=== PATIENT | male | born 1960 | race Caucasian/White ===

== ENCOUNTER → 2023-04-24 06:42 | Day surgery (SDC) | payer BC, SELFPAY | LOC: GI 06:42 | PROVIDERS: ATTENDING PHYSICIAN Internal Medicine Gastroenterology | DX: Z12.11 Encounter for screening for malignant neoplasm of colon (principal); Z86.010 Personal history of colon polyps; K57.30 Diverticulosis of large intestine without perforation or abscess without bleeding; K64.8 Other hemorrhoids; D12.3 Benign neoplasm of transverse colon | CPT/HCPCS: 45385; 88305 ==

== ENCOUNTER 2023-11-23 17:44 | Inpatient (IN) | payer OTHER, SELFPAY ==
[2023-11-23] VITALS (9 sets, daily range): BP systolic 118–171; BP diastolic 63–88; PULSE 49; O2SAT 96; BMI 27.1; BMI 26.7
--- NOTE | 2023-11-23 11:01 | ED.GENMED ---
History of Present Illness
General
Chief Complaint: Dizziness
Source: patient
Exam Limitations: none
Time Seen by Provider: 11/23/23 10:29
Nursing documentation reviewed up to this point in time: agreed with
History of Present Illness
History of Present Illness:
Patient is a 63-year-old male who presents to the ER for evaluation. Patient reports yesterday he had a brief episode of room spinning sensation when he rolled over to get up in the morning out of bed. This morning around 6:50 AM he had similar
episodes where he rolled over to the right of the room started to spin however it did not resolve. He called his family doctor was seen by his family doctor however while at the office his heart rate was found to be low in the low 40s. Reports his
heart rate is normally in the 50s.
Currently he denies a sensation of the room is spinning however he reports it would lie him down he will feel more symptoms. He was nauseous and did vomit.
He is not on blood thinners. Denies any headache. Denies any recent trauma. Denies any associated upper or lower extremity numbness tingling weakness.
Review of Systems
Review of Systems
Allergies reviewed?: Yes
All Other Systems: ROS reviewed and negative except as documented in HPI and ROS
Constitutional: Reports no symptoms; Denies fever, fatigue or chills
EENT: Reports no symptoms
Respiratory: Reports no symptoms
Cardiac: Reports no symptoms
ABD/GI: Reports nausea and vomiting
Musculoskeletal: Reports no symptoms
Skin: Reports no symptoms
Neurological: Reports other (vertigo room spinning sensation)
Psychiatric: Reports no symptoms
Phy Exam
General Physical Exam
General Presentation: no apparent distress
General age: appears stated age
General Skin: warm and dry
General Habitus: normal
General Mental: alert
General Hydration: appears well hydrated
Eye Exam
Eye Exam: PERRL, EOMI and other (Prone horizontal nystagmus)
Eye Exam General: PERRL: bilateral and EOM intact: bilateral
Pupil Exam: Bilateral: round and reactive
Cardiovascular Exam
Cardiovascular Exam: bradycardia
Pulmonary Exam
Pulmonary Exam: lungs clear and no respiratory distress
Neurological Exam
Neurological Exam: alert, oriented x3, no motor deficits and no sensory deficits
Cerebellar
Cerebellar Function: normal finger to nose
Musculoskeletal Exam
Musculoskeletal Exam: full ROM
Skin Exam
Skin Exam: normal color and warm/dry
Course
Orders/Labs/Results
Orders:
Orders
11/23/23 10:09
Electrocardiogram (*1) Urgent
Reason for Study: Chest Pain
EKG- Treatment ONCE
11/23/23 10:58
Complete Blood Count/With Diff Urgent
Comprehensive Metabolic Panel Urgent
TSH Reflex To Free T4 Urgent
11/23/23 11:02
0.9% Sodium Chloride 1000 ml [Nss] 1,000 ml IV BOLUS
Ondansetron Injectable [Zofran] 4 mg .ROUTE .STK-MED ONE
Ondansetron Injectable [Zofran] 4 mg IV NOW STA
11/23/23 11:09
CT Head W/o Iv Contrast Urgent
Comment:
Reason For Exam: vertigo
11/23/23 11:10
Physical Therapy Consult [Pt Eval And Treat] Urgent
Treatment: vertigo eval
Activity Level: Ambulate
11/23/23 13:40
Nitroglycerin 100 mg/250 ml [Nitroglycerin Premix] 100 mg in 250 ml IV NOW
Initial dose in mcg/min, then titrate:: 5
Titrate to keep:: SBP < 160 mmHg
Titrate by mcg/min:: 5 mcg/min, may increase by 10 mcg/min if dose > 20 mcg/min
Frequency of titrations (minutes):: every 3-5 minutes
Maximum dose in mcg/min:: 200
Begin to taper infusion when:: Remained at goal for 2hrs
Taper by mcg/min:: 5 mcg/min
Frequency of taper (minutes) if patient maintains goal:: 30
Taper to off?: Yes
If infusion off & no longer maintaining goal:: Contact Provider
11/23/23 14:46
Ondansetron Injectable [Zofran] 4 mg IV NOW STA
diazePAM [Valium Injection] 2 mg IV NOW STA
Abnormal Lab Results
11/23/23
10:58
RBC 4.58 L 10^6/uL
(4.70-6.10)
MCH 31.2 H pg
(27.0-31.0)
Absolute Lymphs (auto) 0.9 L 10^3/uL
(1.2-3.4)
Neutrophils % 77.3 H %
(42.2-75.2)
Lymphocytes % 14.2 L %
(20.5-51.1)
BUN 24 H mg/dl
(9-20)
Glucose 108 H mg/dl
(70-99)
11/23/23 10:58
11/23/23 10:58
Vital Signs
Initial and Last Documented VS:
Initial Vital Signs
Temp Pulse Resp BP Pulse Ox
98.2 F 45 16 171/85 100
11/23/23 10:22 11/23/23 10:22 11/23/23 10:22 11/23/23 10:22 11/23/23 10:22
Last Documented Vital Signs
Temp Pulse Resp BP Pulse Ox
98.2 F 48 14 166/88 96
11/23/23 10:22 11/23/23 14:45 11/23/23 14:45 11/23/23 13:51 11/23/23 13:51
MDM/Problems Addressed
Differential Diagnosis Includes:
Not limited to peripheral vertigo bradycardia dehydration less likely stroke
MDM/Problems Addressed:
Patient is a 63-year-old male who presented for positional vertigo. Episode started yesterday but was brief but continued today. Patient did see family doctor follow-up the office his heart rate is very low he normally has a low heart rate however
heart rate was as low as 38 here in the ER. Patient has a significant case of peripheral vertigo with obvious nystagmus evaluated by physical therapy who does agree that this is peripheral vertigo. Patient not tolerating procedures well very
vertiginous and vomiting with it. Head CT negative. Physical therapy will attempt additional treatment however will likely need Valium Zofran fluids. Patient's labs unremarkable with low heart rate and continued intractable vertigo will admit
*Critical Care Note
Total Time (30-74mins, 75-104mins- exclusive of procedures): Not Applicable
ED Attending Note
-
Portions of this chart may have been created with voice recognition software.� Occasional wrong word or��sound alike� substitutions may have occurred due to the inherent limitations of voice recognition software.
Discharge Plan
Departure
Patient Disposition: Admit
Date of Disposition: 11/23/23
Time of Disposition: 15:13
Admit to: Telemetry
Admit to doctor: hospitalist
Presentation/result/management discussed w/ accepting MD/DO: Hospitalist
Patient with high blood pressure during this ER visit?: Yes
Condition: Fair
Covid-19: Not Applicable
Discharge Problem:
Vertigo, Bradycardia
Prescriptions:
No Action
sulfamethoxazole-trimethoprim [Bactrim DS] 800-160 mg tablet
1 tab PO DAILY Qty: 14 0RF
docusate sodium [Colace] 100 mg capsule
100 mg PO BID Qty: 60 0RF
Rx Instructions:
get over the counter
naproxen [Naprosyn] 500 mg tablet
500 mg PO BID Qty: 60 0RF
tramadol 50 mg tablet
50 mg PO Q8H PRN (Reason: pain) Qty: 30 0RF
Referrals:
Will Ching CRNP [Family Provider] -
Interventions
Interventions:
*Risk Screen - Suicide Last Done: 11/23/23 10:22
*Neglect/Abuse Screening Last Done: 11/23/23 10:22
*ED COVID-19 Vaccine History Last Done: 11/23/23 10:22
ED- Neurological Assessment Last Done: 11/23/23 10:56
ED Swallowing Screen Last Done: 11/23/23 10:56
Discharge Date and Time
Print Language: CZECH
[2023-11-23] MEDS: ZOFRAN 4 MG IV ×2 (11:04→14:55)
[2023-11-23] MEDS: NSS 1000 IV ×2 (11:05→18:28)
[2023-11-23 11:13] LABS: % Basophils 0.8 % (0-2); % Eosinophils 0.5 % (0-6); % Immature Granulocytes 0.3 % (0-0.5); % Lymphocytes 14.2 % (20.5-51.1); % Monocytes 6.9 % (1.7-9.3); % Neutrophils 77.3 % (42.2-75.2); Absolute Basophils 0.1 10^3/uL (0-0.2); Absolute Lymphocytes 0.9 10^3/uL (1.2-3.4); Absolute Monocytes 0.4 10^3/uL (0.1-0.6); Hemoglobin 14.3 g/dL (13.0-18.0); Mean Corp Hgb Conc. 36.7 g/dL (33.0-37.0); Mean Corpuscular Hgb 31.2 pg (27.0-31.0); Mean Corpuscular Volume 85.2 fL (80.0-94.0); Mean Platelet Volume 9.6 fL (7.4-10.4); Nucleated Red Blood Cells % 0 % (-); Platelet Count 202 10^3/uL (130-400); Red Blood Cell Count 4.58 10^6/uL (4.70-6.10); Red Cell Dist. Width 11.7 % (11.5-14.5); White Blood Cell Count 6.4 10^3/uL (4.8-10.8)
[2023-11-23 11:26] LABS: ALT (SGPT) 24 U/L (0-50); AST (SGOT) 34 U/L (17-59); Albumin 4.3 g/dl (3.5-5.0); Alkaline Phosphatase 70 U/L (38-126); Blood Urea Nitrogen 24 mg/dl (9-20); Calcium 9.3 mg/dl (8.4-10.2); Carbon Dioxide 26 mmol/L (22-30); Chloride 105 mmol/L (98-107); Estimated Creatinine Clearance 78 ml/min; Glucose 108 mg/dl (70-99); Potassium 4.3 mmol/L (3.5-5.1); Sodium 140 mmol/L (135-145); Total Bilirubin 1.2 mg/dl (0.2-1.3); Total Protein 6.7 g/dl (6.3-8.2); eGFR > 60.00
[2023-11-23 11:57] LABS: TSH Reflex To Free T4 0.63 uIU/ml (0.47-4.68)
[2023-11-23] MEDS: VALIUM INJECTION 2 MG IV (14:54)
--- NOTE | 2023-11-23 16:09 | HPS.HSE ---
Family Physician
-
Family Physician: MARIA D Rajan
Chief Complaint
-
Vertigo
History of Present Illness
63-year-old man who yesterday had a brief episode of 'room spinning' sensation when he rolled over to get up in the morning out of his bed. Today, this morning around 6:50 AM he had similar episodes where he rolled over. He felt the room started
to spin, and this did not resolve. He went to his PCP, and at the office, his heart rate was found to be low in the low 40s. Reports his heart rate is normally in the 50s (he is a distance runner). Currently he denies a sensation of the room is
spinning if he is sitting in bed. However, he reports it be worse if he would lie down or stand up. During these episodes, he was nauseous and did vomit. He is not on blood thinners. Denies any headache. Denies any recent trauma. Denies any
associated upper or lower extremity numbness tingling weakness. No regular meds and is usually in good health.
Medical History
Past Medical History
Past Medical History: Reports Other
Additional Past Medical History:
'Abnormal ECG' 20 years ago - unremarkable workup
Past Surgical History: Reports None
Social History
Tobacco: Non-smoker
Alcohol: Occasional
Drug: None
Personal:
Living: With Family
Employment: Employed
Family History
Family History: Not pertinent
Allergies / Home Medications
Allergies reflects when Allergies were last updated in [facility].
Home Medications with original date entered in [facility]
Allergy/Medication List:
Allergies
Allergy/AdvReac Type Severity Reaction Status Date / Time
pollen extracts Allergy runny nose Verified 11/23/23 10:26
Home Medications
docusate sodium 100 mg capsule (Colace) 100 mg PO BID PRN #60 caps 05/11/22
naproxen 500 mg tablet (Naprosyn) 500 mg PO BID PRN #60 tabs 05/11/22
Review of Systems
-
History Source: Patient
A 12 point ROS was completed and negative except as noted: Yes
Physical Exam
Vital Signs
Vital Signs
Temp Pulse Resp BP Pulse Ox
98.2 F 47 18 136/74 94
11/23/23 10:22 11/23/23 15:15 11/23/23 15:01 11/23/23 15:01 11/23/23 15:15
Physical Exam
General: Well Developed, Well Nourished, No Apparent Distress, Comfortable and Conversant
HEENT: NormoCephalic, Moist mucous membranes, Atraumatic, [place] Conjunctivae, No Ptosis, Nose Appears Normal and Ears Appear Normal
Respiratory: Clear
Cardiac: S1/S2 and Bradycardia
GI: Soft, Non Tender and Non Distended
Musculoskeletal: No Clubbing, No Cyanosis and No Edema
Skin: Warm and Dry; No Rash or Jaundice
Neuro: Awake, Alert, Oriented and AO x 3
Psych: Calm
Laboratory Results
-
11/23/23 10:58
11/23/23 10:58
Laboratory Results
Total Bilirubin 1.2 mg/dl (0.2-1.3) 11/23/23 10:58
AST 34 U/L (17-59) 11/23/23 10:58
ALT 24 U/L (0-50) 11/23/23 10:58
Alkaline Phosphatase 70 U/L (38-126) 11/23/23 10:58
Data Reviewed
-
Lab Data: Labs Reviewed by me
Impression/Plan
-
IMPRESSION:
63 man with vertigo and bradycardia. BUN/Creat > 20
PLAN:
1. Bradycardia, unclear if vertigo is related. No BP meds
Give IV fluids
Telemetry
KAPIL
Cardiology consult in am
2. Re-eval vertigo after fluids tomorrow
PT consult
Full code
VCD for DVTp
--- NOTE | 2023-11-23 18:15 | PTCARENOTE ---
Patient arrived to floor from ED. Patient AAOx3, no c/o pain or dizziness. Patient ambulated from stretcher to bed. Patient then voided in Bathroom without difficulty. Call kenyon in reach. Patient instructed to call from RN before getting OOB.
[2023-11-23 20:42] LABS: Troponin I < 0.012 ng/ml
[2023-11-23 23:47] LABS: Troponin I < 0.012 ng/ml
[2023-11-24] MEDS: NSS 1000 IV ×2 (01:04→08:56)
[2023-11-24 03:00] VITALS: BP 120/69
[2023-11-24 03:02] LABS: Troponin I < 0.012 ng/ml
[2023-11-24 04:13] VITALS: BMI 27.1
[2023-11-24 07:56] VITALS: BP 126/76
[2023-11-24 08:22] LABS: Blood Urea Nitrogen 20 mg/dl (9-20); Calcium 8.9 mg/dl (8.4-10.2); Carbon Dioxide 26 mmol/L (22-30); Chloride 108 mmol/L (98-107); Estimated Creatinine Clearance 71 ml/min; Glucose 85 mg/dl (70-99); Potassium 4.2 mmol/L (3.5-5.1); Sodium 142 mmol/L (135-145); eGFR > 60.00
[2023-11-24 09:32] VITALS: PULSE 50; PULSE 51
[2023-11-24 10:35] LABS: Hematocrit 38.4 % (39.0-52.0); Hemoglobin 13.5 g/dL (13.0-18.0); Mean Corp Hgb Conc. 35.2 g/dL (33.0-37.0); Mean Corpuscular Hgb 31.3 pg (27.0-31.0); Mean Corpuscular Volume 88.9 fL (80.0-94.0); Platelet Count 204 10^3/uL (130-400); Red Blood Cell Count 4.32 10^6/uL (4.70-6.10); Red Cell Dist. Width 11.9 % (11.5-14.5); White Blood Cell Count 6.7 10^3/uL (4.8-10.8)
--- NOTE | 2023-11-24 11:47 | W.PN.HOSP.TC ---
Today's Communication/Plan
-
Follow-up cardiology recommendations
Continue on telemetry for now
Consider TTE
Assessment / Plan
Assessment / Plan
#Sinus bradycardia
#First-degree AVB
-Question if this is early sick sinus syndrome versus dysautonomia versus conditioning level
-Patient does state he is well-conditioned from running, heart rate usually near 50/min
-Went to PCP yesterday with vertiginous symptoms, heart rate in low 40s at that time
-ECG here showing sinus bradycardia, persistent AVB; patient states he is always had AVB
-No signs of tachycardia or other malignant arrhythmias on telemetry; troponin negative x 3
-Cardiology is consulted
Plan
-Continue to monitor on telemetry
-Avoid any AV lili blockade
-Consider TTE while here versus outpatient
-Follow-up cardiology recs
#Vertiginous symptoms
-Patient described sensation that room was spinning, recently went to PCP yesterday
-Was started on IV fluid supportively here, symptoms have since resolved
-Heart rate remains low, do not suspect these are related
DVT prophylaxis: SCDs
Diet: Regular
CODE STATUS: Full code
Anticipated Discharge: Within 24 hours
Subjective/Interval History
-
Date of Service: November 24, 2023
Patient was seen and examined at the bedside. No acute events overnight. No acute events per telemetry, consistently showing sinus bradycardia with first-degree AVB
He states he feels well and his symptoms have since resolved. States normal heart rate is high 40s to low 50s per minute. Labs on arrival unremarkable, TSH normal.
She denies chest pain, palpitations, dyspnea, fevers or chills, lightheadedness, abnormal bleeding or bruising, GI issues, urinary issues, paresthesias or weakness.
His symptoms yesterday were predominantly vertigo and described as the room spinning. As mentioned has since resolved
Objective Data
-
Labs:
Laboratory Results
11/24/23
07:51
WBC 6.7
Hgb 13.5
Hct 38.4 L
Plt Count 204
Sodium 142
Potassium 4.2
Chloride 108 H
Carbon Dioxide 26
BUN 20
Creatinine 1.1
Glucose 85
Calcium 8.9
Vital Signs:
Vital Signs
Temp Pulse Resp BP Pulse Ox
97.6 F 43 16 126/76 97
11/24/23 07:56 11/24/23 07:56 11/24/23 07:56 11/24/23 07:56 11/24/23 07:56
Review of Systems
-
History Source: Patient
All other systems: Reviewed and negative
Physical Exam
-
General: Well Nourished, No Apparent Distress and Comfortable
HEENT: Normocephalic, Atraumatic and Moist Mucous Membranes; Negative Anicteric or Thyromegaly
Respiratory: Clear to Auscultation and Non Labored Respirations; Negative Accessory Resp Muscle Use
Cardiac: S1/S2 and Bradycardic (Regular, near 45/min); Negative Murmur, Rub, JVD or Gallop
GI: Soft, Nontender, Nondistended and Normal Bowel Sounds
Musculoskeletal: No Clubbing, No Cyanosis, No Edema and Normal Gait & Station
Skin: Warm, Dry and Normal Turgor; Negative Rash or Jaundice
Neuro: AO x 3, Nonfocal/Grossly Intact and Central Nerve's Intact; Negative Tremors
Psych: Calm
Data Reviewed
-
Labs: Labs Reviewed by me and Discussed with Patient
[2023-11-24 12:15] VITALS: BP 156/80
[2023-11-24 12:58] LABS: Glycohemoglobin (HgbA1c) 5.2 % (4.0-5.6)
--- NOTE | 2023-11-24 13:55 | W.DCSUMMARY ---
Discharge Summary
Discharge Data
Date of Admission: 11/23/23
Date of Discharge: 11/24/23
-
Pending Results: No
Hospital Course
63-year-old male with excellent conditioning status from running, no previous medical issues that presented to the hospital with bradycardia and vertigo. Was seen in PCP office for vertiginous symptoms, noted to have heart rate in the low 40s at
the time and was recommended to come to the ED for further evaluation. Per personal history he runs 7 miles regularly and resting heart rate is typically high 40s to low 50s. Heart rate was noted to be as low as 38/min while here. ECG/telemetry
monitor showing sustained sinus bradycardia with first-degree AVB. No evidence of high-grade AVB, troponin was negative x 3 and there were no ischemic ECG findings as well. With ambulation his heart rate did improve from mid 40s to mid 50s per
minute, remained regular. Patient's vertiginous symptoms did resolve on night 1 of hospital stay, heart rate continued to be low at similar rates despite resolution of symptoms.
Was evaluated by cardiology who provided him with outpatient follow-up information. Should have consideration for echocardiogram. Cannot rule out chronotropic incompetence though no symptoms with ambulation.
Provided him with a prescription for meclizine 25 mg as needed for recurrent vertiginous symptoms.
Discharge Plan
-
Patient Disposition: Home (Routine Discharge)
Discharge Diagnosis/Procedures: Vertigo
Sinus bradycardia
Condition: Good
Diet: No restrictions
Activity: As tolerated
Driving Restrictions: No driving for 24 hours
Bathing Restrictions: None
Activity Restrictions/Additional Instructions:
Schedule follow-up appointment with your family doctor within 7 days of discharge from the hospital
Call health information director referral to schedule office appointment. Should have appointment within a month of being discharged.
Instructions: Bradycardia, Vestibular Exercises, Vertigo ED
Referrals:
Will Ching CRNP [Family Provider] -
Jarrod York MD [Active] - in two to four weeks
Additional Discharge Medication Instructions: Use meclizine as needed if vertiginous symptoms recur
Prescriptions:
New
meclizine 25 mg tablet
25 mg PO DAILY PRN (Reason: vertigo) 7 Days Qty: 7 0RF
Discharge Orders:
Discharge Patient (As Directed); Ordered 11/24/23
Ordered By: Michael Jaimes
Discharge Date and Time
Print Language: CITIZEN OF [place]
[2023-11-24] MEDS: AFLURIA (36 mos+) 2024-2025 FORMULA 0.5 ML IM (14:27)
--- NOTE | 2023-11-24 14:40 | CM ---
Spoke with patient at bedside; IA completed. Admitted with vertigo and low heart rate. He is an avid runner which accounts for his low heart rate.
Sheng lives alone in a ranch style home with no entry steps. Family lives nearby.
[facility] (I) amb and adls; had had [facility] in the past, not needed now.
Plan: Discharge to home with outpatient follow up
PCP: Mani
Pharmacy: [facility] on [address] in [place]
--- NOTE | 2023-11-24 15:06 | CON.CAR ---
Consultation
Consultation Request
Date/Time Consultation Requested: 11/23/23
Date/Time Consultation Performed: 11/24/23
Requesting Provider: Damir
Performing Provider: Chela
Reason for Consultation: bradycardia, dizziness
Medical History
-
Chief Complaint: dizziness
History of Present Illness:
63-year-old man who presented for evaluation following an episode of dizziness. History obtained from patient and sister who is at bedside. Reportedly developed dizziness yesterday was evaluated in the urgent care. Found to be significantly
bradycardic and therefore referred to the emergency department for further workup. Admitted to [facility] and monitored overnight.
Patient describes his dizziness as oscillating vision horizontally from left to right. This was triggered yesterday when he rolled over onto his side. No exertional symptoms that he can report. He underwent vestibular therapy yesterday and today
and dizziness has resolved.
In regards to his bradycardia, he tells me this is longstanding. No prior history of presyncope or syncope. No fatigue. No chest discomfort or shortness of breath at rest or dyspnea on exertion. No lower extremity edema.
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
PMHx/PSHx:
Prostate CA s/p prostatectomy
Past Medical History
Past Medical History: Other (as above)
Past Surgical History: Other (as above)
Social History
Tobacco: Non-Smoker
Alcohol: Occasional
Employment: Employed
Family History
Family History: Reviewed & Not Pertinent
Allergies / Home Medications
Allergy/AdvReac Type Severity Reaction Status Date / Time
pollen extracts Allergy runny nose Verified 11/23/23 10:26
�Medication �Instructions �Recorded �Confirmed �Type
meclizine 25 mg tablet 25 mg PO DAILY PRN vertigo 1 week 11/24/23 Rx
#7 tabs
Review of Systems
-
History Source: Patient
All other systems: Negative unless noted
Physical Exam
Vital Signs
Temp Pulse Resp BP Pulse Ox
97 F 42 16 156/80 97
11/24/23 12:15 11/24/23 12:15 11/24/23 12:15 11/24/23 12:15 11/24/23 07:56
Lab Results
11/24/23 07:51
11/24/23 07:51
Troponin I < 0.012 ng/ml 11/24/23 02:22
Physical Exam
General: Well Developed
HEENT: Normocephalic
Respiratory: Clear
Cardiac: S1/S2 and Regular Rhythm
GI: Soft
Musculoskeletal: No Edema
Skin: Warm and Dry
Neuro: AO x 3
Psych: Calm
Impression / Plan
-
Plans Examiner: None, initially seen by Chela
Assessment:
Dizziness
Bradycardia
Plan:
-Presented with dizziness, describes left to right oscillation with change in position such as rolling over on his side, this sounds most consistent with vertigo and with vestibular rehab here his symptoms have resolved
-Cardiology was engaged given bradycardia
-In discussing with the patient he has a longstanding history of bradycardia and has always been asymptomatic with this, no history of presyncope or syncope
-Twelve-lead ECGs here reviewed which show sinus bradycardia
-Telemetry from overnight reviewed with sinus bradycardia in the 40s and 50s, at times heart rate elevates into the 70s, no high-grade AV block or significant pauses
-Patient tells me he runs 7 miles 3x weekly therefore I suspect high vagal tone from being a well-conditioned athlete is the cause of his low resting heart rate
-Reviewed with the patient and sister at bedside that we can arrange for outpatient cardiology follow-up and further testing such as transthoracic echocardiogram and outpatient professional volleyball player to assess for heart rate variability/chronotropic
incompetence
Stable cardiac status, I reached out to my office to arrange a follow-up appointment
Data Reviewed
-
EKG: Tracing Personally Visualized and interpreted
CT Scan: Report Reviewed by me
Labs: Labs Reviewed by me
Old Records: Reviewed
== END 2023-11-24 15:03 | disposition home or self-care (01) | DRG 149 ==
LOC: 4 WEST ACU 17:44
PROVIDERS: Nurse Practitioner; ADMITTING PHYSICIAN Internal Medicine; ATTENDING PHYSICIAN Internal Medicine; CONSULT PHYSICIAN Internal Medicine Cardiovascular Disease; EMERGENCY PHYSICIAN Emergency Medicine; FAMILY PHYSICIAN Nurse Practitioner Family
PROC: 3E02340 Introduction of Influenza Vaccine into Muscle, Percutaneous Approach (ICD-10-PCS; 2023-11-24)
DX: R42 Dizziness and giddiness (principal); R00.1 Bradycardia, unspecified; R11.2 Nausea with vomiting, unspecified; H55.09 Other forms of nystagmus; Z60.2 Problems related to living alone; Z85.46 Personal history of malignant neoplasm of prostate; Z90.79 Acquired absence of other genital organ(s); Z23 Encounter for immunization
CPT/HCPCS: 70450; 80048; 80053; 83036; 84443; 84484; 85025; 85027; 90686; 93005; 96361; 96374; 96375; 96376; 97112; 97530; 99285; G0008

== ENCOUNTER → 2023-12-18 09:55 | Outpatient (REF) | payer OTHER, SELFPAY | LOC: HWRCS 09:55 | PROVIDERS: ATTENDING PHYSICIAN Nurse Practitioner; FAMILY PHYSICIAN Nurse Practitioner Family | DX: R00.1 Bradycardia, unspecified (principal) | CPT/HCPCS: 93306 ==

== ENCOUNTER → 2024-05-20 11:21 | Outpatient (REF) | payer OTHER, SELFPAY | LOC: RAD 11:21 | PROVIDERS: ATTENDING PHYSICIAN Nurse Practitioner Family; OTHER PHYSICIAN Internal Medicine | DX: R19.5 Other fecal abnormalities (principal); K92.1 Melena | CPT/HCPCS: 74177; Q9967 ==

== ENCOUNTER → 2024-05-28 07:42 | Outpatient (REF) | payer OTHER, SELFPAY | LOC: HWRAD 07:42 | PROVIDERS: ATTENDING PHYSICIAN Nurse Practitioner Family; REFERRING PHYSICIAN Internal Medicine | DX: K80.20 Calculus of gallbladder without cholecystitis without obstruction (principal) | CPT/HCPCS: 76700 ==